=== PATIENT | female | born 1985 | race Caucasian/White ===

== ENCOUNTER 2019-04-21 08:31 | Emergency (ER) | payer OTHER ==
[~2019-04-21] VITALS: Ht 152.4 cm; Wt 59.1 kg
[2019-04-21 08:35] VITALS: Ht 152.4 cm; Wt 59.1 kg
[2019-04-21 09:08] LABS: BASOPHILS 0.4 % (0-2); EOSINOPHILS 0.9 % (0-7); HEMATOCRIT 42.7 % (36.0-48.0); HEMOGLOBIN 14.7 g/dL (12-16); IMMATURE GRANULOCYTES 0.4 % (0-5); LYMPHOCYTES 17.5 % (15-50); MCH 31.9 pg (26.0-34.0); MCHC 34.4 g/dL (31.0-37.0); MCV 92.6 fL (80.0-100.0); MEAN PLATELET VOLUME 9.3 fL (7.4-10.4); MONOCYTES 4.1 % (2-11); NEUTROPHILS 76.7 % (40-80); PLATELET COUNT 238 10x3/uL (130-400); RBC 4.61 10x6/uL (4.00-5.40); RDW 12.1 % (11.5-14.5)
[2019-04-21 09:13] LABS: CALC OSMOLALITY 265 mosm/kg (275-300); CALCIUM 8.9 mg/dL (8.5-10.1); CARBON DIOXIDE 26.7 mmol/L (21.0-32.0); CHLORIDE - SERUM 100 mmol/L (98-107); CREATININE - SERUM 0.7 mg/dL (0.6-1.3); GLUCOSE 99 mg/dL (74-106); POTASSIUM - SERUM 3.6 mmol/L (3.5-5.1); SODIUM 134 mmol/L (136-145); UREA NITROGEN 8 mg/dL (7-18); eGFR NON AFRICAN AMERICAN > 90 mL/min (90-120)
[2019-04-21 09:19] LABS: ALKALINE PHOSPHATASE 66 U/L (30-120); ALT (SGPT) 15 U/L (10-68); BILIRUBIN - TOTAL 0.81 mg/dL (0.2-1.3); PROTEIN - SERUM 7.8 g/dL (6.4-8.2)
[2019-04-21 09:22] LABS: BILIRUBIN NEGATIVE (NEGATIVE); GLUCOSE NEGATIVE (NEGATIVE); KETONE NEGATIVE (NEGATIVE); NITRITE NEGATIVE (NEGATIVE); SPECIFIC GRAVITY 1.015 (1.005-1.020); UROBILINOGEN NORMAL (NORMAL)
[2019-04-21 09:24] LABS: BACTERIA MODERATE /hpf (NEGATIVE); EPITHELIAL CELLS 0-5 /hpf (0-5); RED CELLS - URINE 25-50 /hpf (0-5)
[2019-04-21 09:31] LABS: HCG SERUM NEGATIVE (NEGATIVE)
[2019-04-21] MEDS ORDERED: IBUPROFEN800 MG PO (10:27)
[2019-04-21] MEDS ORDERED: CYCLOBENZAPRINE10 MG PO (10:27)
[2019-04-21] MEDS ORDERED: MACROBID100 MG PO (10:27)
[2019-04-21] MEDS ORDERED: KEFLEX500 MG PO (10:27)
[2019-04-21] MEDS ORDERED: ACETAMINOPHEN500 M1 PO (10:27)
[2019-04-21 11:41] VITALS: BP 137/88
== END 2019-04-21 11:42 | disposition home or self-care (01) ==
LOC: D.ER 08:31
PROVIDERS: Family Medicine
DX: R10.9 Unspecified abdominal pain (principal); R30.0 Dysuria; R31.9 Hematuria, unspecified; N39.0 Urinary tract infection, site not specified